=== PATIENT | female | born 1995 | race Two or more races ===

== ENCOUNTER 2019-01-11 09:18 | Emergency (ER) | payer OTHER ==
[~2019-01-11] VITALS: Ht 162.6 cm; Wt 52.2 kg
== END 2019-01-11 14:57 | disposition home or self-care (01) ==
LOC: ER 09:18
DX: K29.70 Gastritis, unspecified, without bleeding (principal)

== ENCOUNTER 2019-03-15 16:30 | Emergency (ER) | payer OTHER ==
[~2019-03-15] VITALS: Ht 162.6 cm; Wt 52.2 kg
== END 2019-03-15 20:42 | disposition home or self-care (01) ==
LOC: ER 16:30
DX: M79.644 Pain in right finger(s) (principal); L53.8 Other specified erythematous conditions; S61.30 Unspecified open wound of finger with damage to nail; X58.XXXS Exposure to other specified factors, sequela